=== PATIENT | female | born 1990 | race Caucasian/White ===

== ENCOUNTER 2019-09-22 07:30 | Inpatient (IN) | payer BC ==
[2019-09-22] MEDS ORDERED: Calcium Carbonate 500 MG Tab.Chew PO PRN (08:04)
[2019-09-22] MEDS ORDERED: Sodium Chloride 0.9% 10 ML Syringe FLUSH PRN ×2 (08:04→11:56)
[2019-09-22] MEDS ORDERED: Ondansetron 4 MG/2 ML SDV IVPUSH PRN ×2 (08:04→12:57)
[2019-09-22] MEDS ORDERED: Nalbuphine 10 MG/1 ML Vial IVPUSH PRN ×2 (08:04→11:56)
[2019-09-22] MEDS ORDERED: Oxytocin/Lactated Ringers 10 UNIT/1,000 ML BAG IV SCH ×2 (08:15)
[2019-09-22] MEDS ORDERED: Lactated Ringers 1,000 ML IV SCH (08:15)
--- NOTE | 2019-09-22 11:50 | PCM.LDHP ---
L&D History of Present Illness - General Date of Service: 09/22/19 Admit Problem/Dx: Patient Status Order with Admit Dx/Problem 09/22/19 07:43 Patient Status [ADT] Routine 09/22/19 08:04 Patient Status [ADT] Routine Admission Diagnosis/Problem Admission Diagnosis/Problem Spontaneous rupture of membranes - History of Present Illness Introduction:: 29 year old at 36w4d here with SROM. PNC with myself complicated by IVF. No other issues or complications.\ Breech today on ultrasound. 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, , Other (See Below) Other OB/BYN History: IVF - Past Surgical History Female Surgical History: Reports: Other (See Below) Other Female Surgeries/Procedures: left ovarian cyst removal Social & Family History - Family History Family Medical History: Noncontributory - Tobacco Use Smoking Status *Q: Never Smoker - Recreational Drug Use Recreational Drug Use: No H&P Review of Systems - Review of Systems: Review Of Systems: See Below General: Reports: No Symptoms HEENT: Reports: No Symptoms Pulmonary: Reports: No Symptoms Cardiovascular: Reports: No Symptoms Gastrointestinal: Reports: No Symptoms Genitourinary: Reports: No Symptoms Musculoskeletal: Reports: No Symptoms Skin: Reports: No Symptoms Psychiatric: Reports: No Symptoms Neurological: Reports: No Symptoms Hematologic/Lymphatic: Reports: No Symptoms Immunologic: Reports: No Symptoms L&D Exam - Exam Exam: See Below - Vital Signs Vital Signs: Last Vital Signs Temp 36.4 C 09/22/19 07:43 Pulse 98 09/22/19 10:52 Resp 16 09/22/19 07:43 BP 116/77 09/22/19 10:52 Pulse Ox 100 09/22/19 07:43 Weight: 75.478 kg - OB Specific Contraction Intensity: Mild to Moderate Movement: Active Heart Tones: Present Heart Rate (FHR) Variability: Moderate (6-25 bmp) Presentation: Vertex - Meza Score Meza Score Cervix Position: Midposition Meza Score Consistency: Soft Meza Score Effacement: >80% Meza Score Dilation: 1-2 cm Meza Score Infant's Station: -2 Meza Score Total: 8 - Exam General: Alert, Oriented HEENT: PERRLA, Conjunctiva Clear, EACs Clear, EOMI, Hearing Intact, Mucosa Moist & Armour, Nares Patent, Normal Nasal Septum, Posterior Pharynx Clear, TMs Clear Neck: Supple, Trachea Midline Lungs: Clear to Auscultation, Normal Respiratory Effort Cardiovascular: Regular Rate, Regular Rhythm GI/Abdominal Exam: Normal Bowel Sounds, Soft, Non-Tender, No Organomegaly, No Distention, No Abnormal Bruit, No Mass, Pelvis Stable Rectal Exam: Normal Exam, Normal Rectal Tone Back Exam: Normal Inspection, Full Range of Motion Extremities: Normal Inspection, Normal Range of Motion, Non-Tender, No Pedal Edema, Normal Capillary Refill Skin: Warm, Dry, Intact Neurological: Cranial Nerves Intact, Reflexes Equal Bilateral Psychiatric: Alert, Normal Affect, Normal Mood - Patient Data Lab Results Last 24 hrs: Laboratory Results - last 24 hr 09/22/19 Range/Units 08:20 WBC 10.29 H (3.98-10.04) K/mm3 RBC 3.59 L (3.98-5.22) M/mm3 Hgb 11.7 (11.2-15.7) gm/dl Hct 34.3 (34.1-44.9) % MCV 95.5 H (79.4-94.8) fl MCH 32.6 H (25.6-32.2) pg MCHC 34.1 (32.2-35.5) g/dl RDW Std Deviation 42.8 (36.4-46.3) fL Plt Count 136 L (182-369) K/mm3 MPV 10.8 (9.4-12.3) fl Neut % (Auto) 75.1 H (34.0-71.1) % Lymph % (Auto) 15.3 L (19.3-51.7) % [place] % (Auto) 8.4 (4.7-12.5) % Eos % (Auto) 0.5 L (0.7-5.8) Baso % (Auto) 0.3 (0.1-1.2) % Neut # (Auto) 7.74 H (1.56-6.13) K/mm3 Lymph # (Auto) 1.57 (1.18-3.74) K/mm3 [place] # (Auto) 0.86 H (0.24-0.36) K/mm3 Eos # (Auto) 0.05 (0.04-0.36) K/mm3 Baso # (Auto) 0.03 (0.01-0.08) K/mm3 Result Diagrams: 09/22/19 08:20 Problem List Initiated/Reviewed/Updated: Yes Orders Last 24hrs: Active Orders 24 hr Category Date Time Status Patient Status [ADT] Routine ADT 09/22/19 08:04 Active Activity as Tolerated [RC] PFP Care 09/22/19 08:04 Active Communication Order [RC] ASDIRECTED Care 09/22/19 08:04 Active Notify Provider [RC] PFP Care 09/22/19 08:04 Active Notify Provider [RC] PRN Care 09/22/19 08:04 Active Peripheral IV Care [RC] Q2HR Care 09/22/19 08:04 Active Pump Management, Intrathecal [RC] ASDIRECTED Care 09/22/19 08:06 Active Urinary Catheter Assessment [RC] ASDIRECTED Care 09/22/19 08:04 Active Regular Diet [DIET] Diet 09/22/19 Breakfast Active BLOOD BANK HOLD SPECIMEN [BBK] Stat Lab 09/22/19 08:20 Received RAPID PLASMA REAGIN,RPR [CHEM] Stat Lab 09/22/19 08:20 Received Calcium Carbonate [Tums] Med 09/22/19 08:04 Active 1,000 mg PO Q2H PRN Lactated Ringers [Ringers, Lactated] 1,000 ml Med 09/22/19 08:15 Active IV ASDIRECTED Lidocaine 1% [Xylocaine 1%] Med 09/22/19 12:00 Once 20 ml INJECT ONETIME ONE Nalbuphine [Nubain] Med 09/22/19 08:04 Active 10 mg IVPUSH Q2H PRN Ondansetron [Zofran] Med 09/22/19 08:04 Active 4 mg IVPUSH Q4H PRN Oxytocin/Lactated Ringers [Pitocin in LR 10 Units/1,000 Med 09/22/19 08:15 Active ML] 10 unit in 1,000 ml IV .CONTINUOUS Oxytocin/Lactated Ringers [Pitocin in LR 10 Units/1,000 Med 09/22/19 08:15 Active ML] 10 unit in 1,000 ml IV TITRATE Sodium Chloride 0.9% [Saline Flush] Med 09/22/19 08:04 Active 10 ml FLUSH ASDIRECTED PRN Electronic Heart Tones Ext w TOCO [WOMSER] Oth 09/22/19 08:04 Ordered Routine Electronic Heart Tones Internal [WOMSER] Per Unit Ot 09/22/19 08:04 Ordered Routine Peripheral IV Insertion Adult [OM.PC] Routine Ot 09/22/19 08:04 Ordered Resuscitation Status Routine Resus Stat 09/22/19 07:43 Ordered Medication Orders Calcium Carbonate/Glycine (Tums) 1,000 mg PO Q2H PRN PRN Reason: Indigestion Lactated Ringer's (Ringers, Lactated) 1,000 mls @ 100 mls/hr IV ASDIRECTED PA Last Admin: 09/22/19 10:14 Dose: 100 mls/hr Oxytocin/Lactated Ringer's (Pitocin In Lr 10 Units/1,000 Ml) 10 unit in 1,000 mls @ 500 mls/hr IV .CONTINUOUS PA Oxytocin/Lactated Ringer's (Pitocin In Lr 10 Units/1,000 Ml) 10 unit in 1,000 mls @ 12 mls/hr IV TITRATE PA; Protocol Last Titration: 09/22/19 11:22 Dose: 6 munits/min, 36 mls/hr Titration: 09/22/19 10:48 Dose: 4 munits/min, 24 mls/hr Admin: 09/22/19 10:15 Dose: 2 munits/min, 12 mls/hr Lidocaine HCl (Xylocaine 1%) 20 ml INJECT ONETIME ONE Stop: 09/22/19 12:01 Nalbuphine HCl (Nubain) 10 mg IVPUSH Q2H PRN PRN Reason: Pain Ondansetron HCl (Zofran) 4 mg IVPUSH Q4H PRN PRN Reason: Nausea/Vomiting Sodium Chloride (Saline Flush) 10 ml FLUSH ASDIRECTED PRN PRN Reason: Keep Vein Open Assessment/Plan Comment:: 29 year old female here with breech. Proceed with section.
[2019-09-22] MEDS ORDERED: Azithromycin 500 MG in Sodium Chloride 0.9% 250 ML IV ONE (11:56)
[2019-09-22] MEDS ORDERED: Citric Acid/Sodium Citrate Solution 30 ML Cup PO ONE (11:56)
[2019-09-22] MEDS ORDERED: Metoclopramide 10 MG/2 ML SDV IVPUSH ONE (11:56)
[2019-09-22] MEDS ORDERED: Lidocaine 1% 50 ML MDV INJECT ONE (12:00)
[2019-09-22] MEDS ORDERED: Bupivacaine 0.5% 30 ML SDV ONE (12:06)
[2019-09-22] MEDS ORDERED: Ondansetron 4 MG/2 ML SDV ONE (12:19)
[2019-09-22] MEDS ORDERED: ceFAZolin 1 GM Vial ONE (12:19)
[2019-09-22] MEDS ORDERED: Ketorolac 30 MG/ML SDV ONE (12:19)
[2019-09-22] MEDS ORDERED: Morphine PF 10 MG/10 ML SDV ONE (12:19)
[2019-09-22] MEDS ORDERED: Lactated Ringers 2,000 ML ONE (12:19)
[2019-09-22] MEDS ORDERED: Oxytocin 10 Units/1 ML SDV ONE (12:19)
--- NOTE | 2019-09-22 12:30 | PCM.PREANE ---
Preanesthetic Assessment - Procedure Proposed Procedure: c section - Anesthesia/Transfusion/Family Hx Anesthesia History: Prior Anesthesia Without Reaction Family History of Anesthesia Reaction: No Transfusion History: No Prior Transfusion(s) - Review of Systems General: No Symptoms Pulmonary: No Symptoms Cardiovascular: No Symptoms Gastrointestinal: No Symptoms Neurological: No Symptoms Other: Reports: None - Physical Assessment NPO Status Date: 09/22/19 NPO Status Time: 11:00 (almonds) Vital Signs: Last Vital Signs Temp 97.6 F 09/22/19 07:43 Pulse 102 H 09/22/19 11:24 Resp 16 09/22/19 07:43 BP 118/81 09/22/19 11:24 Pulse Ox 100 09/22/19 07:43 Height: 5 ft 6 in Weight: 75.478 kg ASA Class: 2 Mental Status: Alert & Oriented x3 Airway Class: Mallampati = 1 Dentition: Reports: Normal Dentition Thyro-Mental Finger Breadths: 3 Mouth Opening Finger Breadths: 3 ROM/Head Extension: Full Lungs: Clear to Auscultation, Normal Respiratory Effort Cardiovascular: Regular Rate, Regular Rhythm - Lab Values: Laboratory Last Values WBC 10.29 K/mm3 (3.98-10.04) H 09/22/19 08:20 RBC 3.59 M/mm3 (3.98-5.22) L 09/22/19 08:20 Hgb 11.7 gm/dl (11.2-15.7) 09/22/19 08:20 Hct 34.3 % (34.1-44.9) 09/22/19 08:20 MCV 95.5 fl (79.4-94.8) H 09/22/19 08:20 MCH 32.6 pg (25.6-32.2) H 09/22/19 08:20 MCHC 34.1 g/dl (32.2-35.5) 09/22/19 08:20 RDW Std Deviation 42.8 fL (36.4-46.3) 09/22/19 08:20 Plt Count 136 K/mm3 (182-369) L 09/22/19 08:20 MPV 10.8 fl (9.4-12.3) 09/22/19 08:20 Neut % (Auto) 75.1 % (34.0-71.1) H 09/22/19 08:20 Lymph % (Auto) 15.3 % (19.3-51.7) L 09/22/19 08:20 [place] % (Auto) 8.4 % (4.7-12.5) 09/22/19 08:20 Eos % (Auto) 0.5 (0.7-5.8) L 09/22/19 08:20 Baso % (Auto) 0.3 % (0.1-1.2) 09/22/19 08:20 Neut # (Auto) 7.74 K/mm3 (1.56-6.13) H 09/22/19 08:20 Lymph # (Auto) 1.57 K/mm3 (1.18-3.74) 09/22/19 08:20 [place] # (Auto) 0.86 K/mm3 (0.24-0.36) H 09/22/19 08:20 Eos # (Auto) 0.05 K/mm3 (0.04-0.36) 09/22/19 08:20 Baso # (Auto) 0.03 K/mm3 (0.01-0.08) 09/22/19 08:20 - Allergies Allergies/Adverse Reactions: Allergies Allergy/AdvReac Type Severity Reaction Status Date / Time No Known Allergies Allergy Verified 09/22/19 09:07 - Blood Blood Available: No - Acknowledgements Anesthesia Type Planned: Spinal Pt an Appropriate Candidate for the Planned Anesthesia: Yes Alternatives and Risks of Anesthesia Discussed w Pt/Guardian: Yes Pt/Guardian Understands and Agrees with Anesthesia Plan: Yes PreAnesthesia Questionnaire HEENT History: Reports: Other (See Below) Other HEENT History: wears glasses Cardiovascular History: Reports: None Respiratory History: Reports: None Gastrointestinal History: Reports: None [employer]S History: Reports: Endometriosis, , Other (See Below) : 1 (36 weeks) Para: 0 Other OB/BYN History: IVF - Past Surgical History Female Surgical History: Reports: Other (See Below) Other Female Surgeries/Procedures: left ovarian cyst removal - SUBSTANCE USE Smoking Status *Q: Never Smoker Tobacco Use Within Last Twelve Months: No Second Hand Smoke Exposure: No Days Per Week of Alcohol Use: 0 Recreational Drug Use History: No - HOME MEDS Home Medications: Home Meds Fish Oil/[place]-3 Fatty Acids [Fish Oil 1,000 MG] 1 each PO DAILY 09/22/19 [ History] Pnv No.122/Iron/Folic Acid [ Multi Tablet] 1 each PO DAILY 09/22/19 [ History] Psyllium [Metamucil] 0.5 gm PO DAILY 09/22/19 [History] - CURRENT (IN HOUSE) MEDS Current Meds: Current Medications Azithromycin 500 mg/ Sodium (Chloride) 250 mls @ 250 mls/hr IV ONETIME ONE Stop: 09/22/19 12:55 Lactated Ringer's (Ringers, Lactated) 1,000 mls @ 125 mls/hr IV ASDIRECTED PA Nalbuphine HCl (Nubain) 10 mg IVPUSH Q2H PRN PRN Reason: Pain Sodium Chloride (Saline Flush) 10 ml FLUSH ASDIRECTED PRN PRN Reason: Keep Vein Open Discontinued Medications Bupivacaine HCl (Marcaine 0.5%) Confirm Administered Dose 30 ml .ROUTE .STK-MED ONE Stop: 09/22/19 12:07 Calcium Carbonate/Glycine (Tums) 1,000 mg PO Q2H PRN PRN Reason: Indigestion Cefazolin Sodium (Ancef) Confirm Administered Dose 2 gm .ROUTE .STK-MED ONE Stop: 09/22/19 12:20 Citric Acid/Sodium Citrate (Bicitra Solution) 30 ml PO ONETIME ONE Stop: 09/22/19 11:57 Last Admin: 09/22/19 12:16 Dose: 30 ml Lactated Ringer's (Ringers, Lactated) 1,000 mls @ 100 mls/hr IV ASDIRECTED PA Last Admin: 09/22/19 10:14 Dose: 100 mls/hr Oxytocin/Lactated Ringer's (Pitocin In Lr 10 Units/1,000 Ml) 10 unit in 1,000 mls @ 500 mls/hr IV .CONTINUOUS PA Oxytocin/Lactated Ringer's (Pitocin In Lr 10 Units/1,000 Ml) 10 unit in 1,000 mls @ 12 mls/hr IV TITRATE PA; Protocol Last Titration: 09/22/19 11:22 Dose: 6 munits/min, 36 mls/hr Lactated Ringer's (Ringers, Lactated) Confirm Administered Dose 2,000 mls @ as directed .ROUTE .STK-MED ONE Stop: 09/22/19 12:20 Ketorolac Tromethamine (Toradol) Confirm Administered Dose 30 mg .ROUTE .STK- MED ONE Stop: 09/22/19 12:20 Lidocaine HCl (Xylocaine 1%) 20 ml INJECT ONETIME ONE Stop: 09/22/19 12:01 Metoclopramide HCl (Reglan) 10 mg IVPUSH ONETIME ONE Stop: 09/22/19 11:57 Last Admin: 09/22/19 12:15 Dose: 10 mg Morphine Sulfate (Duramorph Pf) Confirm Administered Dose 10 mg .ROUTE .STK-MED ONE Stop: 09/22/19 12:20 Nalbuphine HCl (Nubain) 10 mg IVPUSH Q2H PRN PRN Reason: Pain Ondansetron HCl (Zofran) 4 mg IVPUSH Q4H PRN PRN Reason: Nausea/Vomiting Ondansetron HCl (Zofran) Confirm Administered Dose 4 mg .ROUTE .STK-MED ONE Stop: 09/22/19 12:20 Oxytocin (Pitocin) Confirm Administered Dose 10 unit .ROUTE .STK-MED ONE Stop: 09/22/19 12:20 Sodium Chloride (Saline Flush) 10 ml FLUSH ASDIRECTED PRN PRN Reason: Keep Vein Open
[2019-09-22] MEDS: Lactated Ringers 1,000 ML IV SCH ×2 (12:38→13:56)
[2019-09-22] MEDS ORDERED: ePHEDrine/Normal Saline 25 MG/5 ML Syringe ONE (12:47)
[2019-09-22] MEDS ORDERED: Phenylephrine/Normal Saline 100 MCG/ML 10 ML Syringe ONE (12:56)
[2019-09-22] MEDS ORDERED: fentaNYL 100 MCG/2 ML SDV IVPUSH PRN (12:57)
[2019-09-22] MEDS ORDERED: diphenhydrAMINE 50 MG/ML SDV IVPUSH PRN ×2 (12:57→14:00)
--- NOTE | 2019-09-22 13:46 | PCM.POSTAN ---
POST ANESTHESIA ASSESSMENT - MENTAL STATUS Mental Status: Alert, Oriented - VITAL SIGNS Vital Signs: Last Vital Signs Temp 97.6 F 09/22/19 07:43 Pulse 92 09/22/19 12:19 Resp 16 09/22/19 07:43 BP 114/72 09/22/19 12:19 Pulse Ox 100 09/22/19 07:43 1336 76 9 97.8 100% 105/74 - RESPIRATORY Respiratory Status: Respiratory Rate WNL, Airway Patent, O2 Saturation Stable, Supplemental Oxygen - CARDIOVASCULAR CV Status: Pulse Rate WNL, Blood Pressure Stable - GASTROINTESTINAL GI Status: No Symptoms - PAIN Pain Score: 0 - POST OP HYDRATION Hydration Status: Adequate & Stable
--- NOTE | 2019-09-22 13:55 | PCM.OPNOTE ---
- General Post-Op/Procedure Note Date of Surgery/Procedure: 09/22/19 Operative Procedure(s): primary - low transverse with low vertical extension (very small) - would likely consider candidate for tolac Findings: footling breech, 3/8 apgars, 7#5oz at 1305. Pre Op Diagnosis: breech Post-Op Diagnosis: Same Anesthesia Technique: Spinal Primary Surgeon: Rachael Willson Anesthesia Provider: Shivani Hassan Tonger: Leona Helm Fluid Replacement, Intraop: 2,100 Output, Urine Amount: 150 EBL in mLs: 700 Complications: None Condition: Good Free Text/Narrative:: Intake & Output 09/21/19 09/22/19 09/22/19 22:59 06:59 14:59 Intake Total 0 Balance 0 The patient was taken to the operating room where spinal anesthesia was initiated without difficulty. The patient was prepped and draped in the usual sterile fashion in the dorsal supine position with a leftward tilt. A Pfannenstiel skin incision was made with the scalpel and carried through to the underlying layer of fascia. The fascia was incised in the midline and extended laterally using Hodge scissors. Hannah clamps were used to elevate the superior aspect of the fascial incision, which was elevated, and the underlying rectus muscles were dissected off bluntly and using Hodge scissors. Attention was then turned to the inferior aspect of the fascial incision, which in similar fashion was grasped with Hannah clamps, elevated, and the underlying rectus muscles were dissected off bluntly and using the hodge. The rectus muscles were dissected in the midline. The peritoneum was entered bluntly; this incision was extended superiorly and inferiorly with good visualization of the bladder. The bladder blade was inserted. The vesicouterine peritoneum was identified and entered sharply using Metzenbaum scissors. This incision was extended laterally and the bladder flap was created digitally. The bladder blade was reinserted. The lower uterine segment was incised in a transverse fashion using the scalpel and with digital traction. Clear fluid was noted. Feet grasped, body delivered with usual breech maneuvers with some difficulty. The cord was clamped and cut. The was subsequently handed to the awaiting head filter tank tender helper whose presence had been requested.. The placenta was delivered spontaneously intact with a three-vessel cord noted. The uterus was exteriorized and cleared of all clots and debris. The uterine incision was repaired in 2 layers using 0 monocryl. Hemostasis was visualized. Hemostasis was visualized bilaterally. The uterus was returned to the abdomen. The uterine incision was reexamined and it was noted to be hemostatic. The pelvis was copiously irrigated. The fascia was closed with 1 PDS suture, and the skin was closed with 3-0 monocryl. Sponge, lap, and instrument counts were correct x2. The patient was stable at the completion of the procedure and was subsequently transferred to the recovery room in stable condition.
[2019-09-22] MEDS ORDERED: Naloxone 0.4 MG/ML SDV IVPUSH PRN (14:00)
[2019-09-22] MEDS ORDERED: Dextrose 5%-Lactated Ringers 1,000 ML IV SCH (14:00)
[2019-09-22] MEDS ORDERED: ePHEDrine 50 MG/ML SDV IVPUSH PRN (14:00)
[2019-09-22] MEDS: Ketorolac 30 MG/ML SDV IVPUSH SCH (19:16)
[2019-09-23] MEDS: Ketorolac 30 MG/ML SDV IVPUSH SCH ×2 (01:04→06:50)
--- NOTE | 2019-09-23 08:05 | PCM48HPAN ---
Post Anesthesia Note - EVALUATION WITHIN 48HRS OF ANESTHETIC Vital Signs in Normal Range: Yes Patient Participated in Evaluation: Yes Respiratory Function Stable: Yes Airway Patent: Yes Cardiovascular Function Stable: Yes Hydration Status Stable: Yes Pain Control Satisfactory: Yes Nausea and Vomiting Control Satisfactory: Yes Mental Status Recovered: Yes Vital Signs: Last Vital Signs Temp 36.8 C 09/23/19 04:18 Pulse 91 09/23/19 04:18 Resp 14 09/23/19 04:18 BP 96/61 09/23/19 04:18 Pulse Ox 99 09/23/19 04:18
[2019-09-23] MEDS: Docusate Sodium 100 MG Cap PO PRN ×2 (08:37→21:01)
[2019-09-23] MEDS: Acetaminophen/oxyCODONE 325-5 MG Tab PO PRN ×3 (08:38→20:56)
[2019-09-23] MEDS: Ibuprofen 600 MG Tab PO PRN (12:55)
[2019-09-24] MEDS: Ibuprofen 600 MG Tab PO PRN ×3 (02:10→20:03)
[2019-09-24] MEDS: Acetaminophen/oxyCODONE 325-5 MG Tab PO PRN (09:45)
[2019-09-25] MEDS: Docusate Sodium 100 MG Cap PO PRN (03:17)
[2019-09-25] MEDS: Acetaminophen/oxyCODONE 325-5 MG Tab PO PRN (03:17)
--- NOTE | 2019-09-25 06:23 | PCM.PNPP ---
- General Info Date of Service: 09/23/19 Functional Status: Reports: Pain Controlled - Review of Systems General: Reports: No Symptoms HEENT: Reports: No Symptoms Pulmonary: Reports: No Symptoms Cardiovascular: Reports: No Symptoms Gastrointestinal: Reports: No Symptoms Genitourinary: Reports: No Symptoms Musculoskeletal: Reports: No Symptoms Skin: Reports: No Symptoms Neurological: Reports: No Symptoms Psychiatric: Reports: No Symptoms - General Info Date of Service: 09/23/19 - Patient Data Vital Signs - Most Recent: Last Vital Signs Temp 36.6 C 09/25/19 03:12 Pulse 74 09/25/19 03:12 Resp 14 09/25/19 03:12 BP 118/72 09/25/19 03:12 Pulse Ox 97 09/25/19 03:12 Weight - Most Recent: 75.478 kg I&O - Last 24 Hours: Intake & Output 09/24/19 09/24/19 09/25/19 14:59 22:59 06:59 Intake Total 240 Balance 240 Med Orders - Current: Current Medications Diphenhydramine HCl (Benadryl) 25 mg IVPUSH Q6H PRN PRN Reason: Itching or Nausea Docusate Sodium (Colace) 100 mg PO Q12H PRN PRN Reason: Constipation Last Admin: 09/25/19 03:17 Dose: 100 mg Ephedrine Sulfate (Ephedrine Sulfate) 5 mg IVPUSH SEECOMMENT PRN PRN Reason: Other Ibuprofen (Motrin) 600 mg PO Q6H PRN PRN Reason: mild pain or fever Last Admin: 09/24/19 20:03 Dose: 600 mg Naloxone HCl (Narcan) 0.1 mg IVPUSH SEECOMMENT PRN PRN Reason: Respiratory Depression Oxycodone/Acetaminophen (Percocet 325-5 Mg) 1 - 2 tab PO Q4H PRN PRN Reason: Pain Last Admin: 09/25/19 03:17 Dose: 1 tab Discontinued Medications Bupivacaine HCl (Marcaine 0.5%) Confirm Administered Dose 30 ml .ROUTE .STK-MED ONE Stop: 09/22/19 12:07 Last Admin: 09/22/19 12:54 Dose: 19 ml Calcium Carbonate/Glycine (Tums) 1,000 mg PO Q2H PRN PRN Reason: Indigestion Cefazolin Sodium (Ancef) Confirm Administered Dose 2 gm .ROUTE .STK-MED ONE Stop: 09/22/19 12:20 Citric Acid/Sodium Citrate (Bicitra Solution) 30 ml PO ONETIME ONE Stop: 09/22/19 11:57 Last Admin: 09/22/19 12:16 Dose: 30 ml Diphenhydramine HCl (Benadryl) 25 mg IVPUSH Q6H PRN PRN Reason: Pruritis Ephedrine Sulfate (Ephedrine In Ns) Confirm Administered Dose 25 mg .ROUTE .STK- MED ONE Stop: 09/22/19 12:48 Fentanyl (Sublimaze) 50 mcg IVPUSH Q5M PRN PRN Reason: Pain Lactated Ringer's (Ringers, Lactated) 1,000 mls @ 100 mls/hr IV ASDIRECTED PA Last Admin: 09/22/19 10:14 Dose: 100 mls/hr Oxytocin/Lactated Ringer's (Pitocin In Lr 10 Units/1,000 Ml) 10 unit in 1,000 mls @ 500 mls/hr IV .CONTINUOUS PA Oxytocin/Lactated Ringer's (Pitocin In Lr 10 Units/1,000 Ml) 10 unit in 1,000 mls @ 12 mls/hr IV TITRATE PA; Protocol Last Titration: 09/22/19 11:22 Dose: 6 munits/min, 36 mls/hr Azithromycin 500 mg/ Sodium (Chloride) 250 mls @ 250 mls/hr IV ONETIME ONE Stop: 09/22/19 12:55 Last Admin: 09/22/19 12:20 Dose: 250 mls/hr Lactated Ringer's (Ringers, Lactated) 1,000 mls @ 125 mls/hr IV ASDIRECTED PA Last Admin: 09/22/19 13:56 Dose: 125 mls/hr Lactated Ringer's (Ringers, Lactated) Confirm Administered Dose 2,000 mls @ as directed .ROUTE .STK-MED ONE Stop: 09/22/19 12:20 Dextrose/Lactated Ringer's (Dextrose 5%-Lactated Ringers) 1,000 mls @ 125 mls/ hr IV ASDIRECTED PA Stop: 09/22/19 21:59 Last Admin: 09/22/19 18:03 Dose: 125 mls/hr Ketorolac Tromethamine (Toradol) Confirm Administered Dose 30 mg .ROUTE .STK- MED ONE Stop: 09/22/19 12:20 Ketorolac Tromethamine (Toradol) 30 mg IVPUSH Q6H PA Stop: 09/23/19 06:31 Last Admin: 09/23/19 06:50 Dose: 30 mg Lidocaine HCl (Xylocaine 1%) 20 ml INJECT ONETIME ONE Stop: 09/22/19 12:01 Metoclopramide HCl (Reglan) 10 mg IVPUSH ONETIME ONE Stop: 09/22/19 11:57 Last Admin: 09/22/19 12:15 Dose: 10 mg Morphine Sulfate (Duramorph Pf) Confirm Administered Dose 10 mg .ROUTE .STK-MED ONE Stop: 09/22/19 12:20 Nalbuphine HCl (Nubain) 10 mg IVPUSH Q2H PRN PRN Reason: Pain Nalbuphine HCl (Nubain) 10 mg IVPUSH Q2H PRN PRN Reason: Pain Ondansetron HCl (Zofran) 4 mg IVPUSH Q4H PRN PRN Reason: Nausea/Vomiting Ondansetron HCl (Zofran) Confirm Administered Dose 4 mg .ROUTE .STK-MED ONE Stop: 09/22/19 12:20 Ondansetron HCl (Zofran) 4 mg IVPUSH ONETIME PRN PRN Reason: Nausea/Vomiting Oxycodone/Acetaminophen (Percocet 325-5 Mg) 2 tab PO Q4H PRN PRN Reason: Pain (moderate 4-6) Last Admin: 09/23/19 15:10 Dose: 1 tab Oxytocin (Pitocin) Confirm Administered Dose 10 unit .ROUTE .STK-MED ONE Stop: 09/22/19 12:20 Phenylephrine HCl (Phenylephrine In Ns 100 Mcg/Ml) Confirm Administered Dose 1 mg .ROUTE .STK-MED ONE Stop: 09/22/19 12:57 Sodium Chloride (Saline Flush) 10 ml FLUSH ASDIRECTED PRN PRN Reason: Keep Vein Open Sodium Chloride (Saline Flush) 10 ml FLUSH ASDIRECTED PRN PRN Reason: Keep Vein Open - Interaction Infant Disposition, : [place] at Bedside Support Person: - Recovery Exam Fundal Tone: Firm Fundal Level: 1 Fingerbreadths Below Umbilicus Fundal Placement: Midline Lochia Amount: Small Lochia Color: [place]/Red Perineum Description: Intact, Minimal Bruising/Swelling Episiotomy/Laceration: None Bladder Status: Voiding Urinary Elimination: Voided - Exam General: Alert, Oriented HEENT: Pupils Equal Neck: Supple Lungs: Clear to Auscultation, Normal Respiratory Effort Cardiovascular: Regular Rate, Regular Rhythm GI/Abdominal Exam: Normal Bowel Sounds, Soft, Non-Tender, No Organomegaly, No Distention, No Abnormal Bruit, No Mass, Pelvis Stable Extremities: Normal Inspection, Normal Range of Motion, Non-Tender, No Pedal Edema, Normal Capillary Refill Skin: Warm, Dry, Intact Wound/Incisions: Healing Well, No Drainage Neurological: No New Focal Deficit Psy/Mental Status: Alert, Normal Affect, Normal Mood - Problem List Review Problem List Initiated/Reviewed/Updated: Yes - Assessment Assessment:: POD2. Doing well. No complaints. Probable discharge tomorrow.
--- NOTE | 2019-09-25 06:26 | PCM.DCSUM1 ---
Discharge Summary - Hospital Course Diagnosis: Stroke: No - Discharge Data Discharge Date: 09/25/19 Discharge Disposition: Home, Self-Care 01 Condition: Good - Referral to Home Health Primary Care Physician: Rachael Willson MD - Patient Summary/Data Operative Procedure(s) Performed: primary - low transverse with low vertical extension (very small) - would likely consider candidate for tolac - Patient Instructions Diet: Usual Diet as Tolerated Activity: No Strenuous Activities Activity, Other: pelvic rest Driving: Do Not Drive Showering/Bathing: May Shower Wound/Incision Care: Keep Operative Site/Wound Site Clean and Dry Notify Provider of: Fever, Increased Pain, Swelling and Redness, Drainage, Nausea and/or Vomiting - Discharge Plan *PRESCRIPTION DRUG MONITORING PROGRAM REVIEWED*: No *COPY OF PRESCRIPTION DRUG MONITORING REPORT IN PATIENT FANY: No Home Medications: Home Meds Fish Oil/[place]-3 Fatty Acids [Fish Oil 1,000 MG] 1 each PO DAILY 09/22/19 [ History] Pnv No.122/Iron/Folic Acid [ Multi Tablet] 1 each PO DAILY 09/22/19 [ History] Psyllium [Metamucil] 0.5 gm PO DAILY 09/22/19 [History] Referrals: Rachael Willson MD [Primary Care Provider] - (2-3 weeks) - Discharge Summary/Plan Comment DC Time >30 min.: No - General Info Date of Service: 09/25/19 Functional Status: Reports: Pain Controlled - Review of Systems General: Reports: No Symptoms HEENT: Reports: No Symptoms Pulmonary: Reports: No Symptoms Cardiovascular: Reports: No Symptoms Gastrointestinal: Reports: No Symptoms Genitourinary: Reports: No Symptoms Musculoskeletal: Reports: No Symptoms Skin: Reports: No Symptoms Neurological: Reports: No Symptoms Psychiatric: Reports: No Symptoms - Patient Data Vitals - Most Recent: Last Vital Signs Temp 36.6 C 09/25/19 03:12 Pulse 74 09/25/19 03:12 Resp 14 09/25/19 03:12 BP 118/72 09/25/19 03:12 Pulse Ox 97 09/25/19 03:12 Weight - Most Recent: 75.478 kg I&O - Last 24 hours: Intake & Output 09/24/19 09/24/19 09/25/19 14:59 22:59 06:59 Intake Total 240 Balance 240 Med Orders - Current: Current Medications Diphenhydramine HCl (Benadryl) 25 mg IVPUSH Q6H PRN PRN Reason: Itching or Nausea Docusate Sodium (Colace) 100 mg PO Q12H PRN PRN Reason: Constipation Last Admin: 09/25/19 03:17 Dose: 100 mg Ephedrine Sulfate (Ephedrine Sulfate) 5 mg IVPUSH SEECOMMENT PRN PRN Reason: Other Ibuprofen (Motrin) 600 mg PO Q6H PRN PRN Reason: mild pain or fever Last Admin: 09/24/19 20:03 Dose: 600 mg Naloxone HCl (Narcan) 0.1 mg IVPUSH SEECOMMENT PRN PRN Reason: Respiratory Depression Oxycodone/Acetaminophen (Percocet 325-5 Mg) 1 - 2 tab PO Q4H PRN PRN Reason: Pain Last Admin: 09/25/19 03:17 Dose: 1 tab Discontinued Medications Bupivacaine HCl (Marcaine 0.5%) Confirm Administered Dose 30 ml .ROUTE .STK-MED ONE Stop: 09/22/19 12:07 Last Admin: 09/22/19 12:54 Dose: 19 ml Calcium Carbonate/Glycine (Tums) 1,000 mg PO Q2H PRN PRN Reason: Indigestion Cefazolin Sodium (Ancef) Confirm Administered Dose 2 gm .ROUTE .STK-MED ONE Stop: 09/22/19 12:20 Citric Acid/Sodium Citrate (Bicitra Solution) 30 ml PO ONETIME ONE Stop: 09/22/19 11:57 Last Admin: 09/22/19 12:16 Dose: 30 ml Diphenhydramine HCl (Benadryl) 25 mg IVPUSH Q6H PRN PRN Reason: Pruritis Ephedrine Sulfate (Ephedrine In Ns) Confirm Administered Dose 25 mg .ROUTE .STK- MED ONE Stop: 09/22/19 12:48 Fentanyl (Sublimaze) 50 mcg IVPUSH Q5M PRN PRN Reason: Pain Lactated Ringer's (Ringers, Lactated) 1,000 mls @ 100 mls/hr IV ASDIRECTED PA Last Admin: 09/22/19 10:14 Dose: 100 mls/hr Oxytocin/Lactated Ringer's (Pitocin In Lr 10 Units/1,000 Ml) 10 unit in 1,000 mls @ 500 mls/hr IV .CONTINUOUS PA Oxytocin/Lactated Ringer's (Pitocin In Lr 10 Units/1,000 Ml) 10 unit in 1,000 mls @ 12 mls/hr IV TITRATE PA; Protocol Last Titration: 09/22/19 11:22 Dose: 6 munits/min, 36 mls/hr Azithromycin 500 mg/ Sodium (Chloride) 250 mls @ 250 mls/hr IV ONETIME ONE Stop: 09/22/19 12:55 Last Admin: 09/22/19 12:20 Dose: 250 mls/hr Lactated Ringer's (Ringers, Lactated) 1,000 mls @ 125 mls/hr IV ASDIRECTED [facility] Last Admin: 09/22/19 13:56 Dose: 125 mls/hr Lactated Ringer's (Ringers, Lactated) Confirm Administered Dose 2,000 mls @ as directed .ROUTE .STK-MED ONE Stop: 09/22/19 12:20 Dextrose/Lactated Ringer's (Dextrose 5%-Lactated Ringers) 1,000 mls @ 125 mls/ hr IV ASDIRECTED [facility] Stop: 09/22/19 21:59 Last Admin: 09/22/19 18:03 Dose: 125 mls/hr Ketorolac Tromethamine (Toradol) Confirm Administered Dose 30 mg .ROUTE .STK- MED ONE Stop: 09/22/19 12:20 Ketorolac Tromethamine (Toradol) 30 mg IVPUSH Q6H [facility] Stop: 09/23/19 06:31 Last Admin: 09/23/19 06:50 Dose: 30 mg Lidocaine HCl (Xylocaine 1%) 20 ml INJECT ONETIME ONE Stop: 09/22/19 12:01 Metoclopramide HCl (Reglan) 10 mg IVPUSH ONETIME ONE Stop: 09/22/19 11:57 Last Admin: 09/22/19 12:15 Dose: 10 mg Morphine Sulfate (Duramorph Pf) Confirm Administered Dose 10 mg .ROUTE .STK-MED ONE Stop: 09/22/19 12:20 Nalbuphine HCl (Nubain) 10 mg IVPUSH Q2H PRN PRN Reason: Pain Nalbuphine HCl (Nubain) 10 mg IVPUSH Q2H PRN PRN Reason: Pain Ondansetron HCl (Zofran) 4 mg IVPUSH Q4H PRN PRN Reason: Nausea/Vomiting Ondansetron HCl (Zofran) Confirm Administered Dose 4 mg .ROUTE .STK-MED ONE Stop: 09/22/19 12:20 Ondansetron HCl (Zofran) 4 mg IVPUSH ONETIME PRN PRN Reason: Nausea/Vomiting Oxycodone/Acetaminophen (Percocet 325-5 Mg) 2 tab PO Q4H PRN PRN Reason: Pain (moderate 4-6) Last Admin: 09/23/19 15:10 Dose: 1 tab Oxytocin (Pitocin) Confirm Administered Dose 10 unit .ROUTE .STK-MED ONE Stop: 09/22/19 12:20 Phenylephrine HCl (Phenylephrine In Ns 100 Mcg/Ml) Confirm Administered Dose 1 mg .ROUTE .STK-MED ONE Stop: 09/22/19 12:57 Sodium Chloride (Saline Flush) 10 ml FLUSH ASDIRECTED PRN PRN Reason: Keep Vein Open Sodium Chloride (Saline Flush) 10 ml FLUSH ASDIRECTED PRN PRN Reason: Keep Vein Open - Exam General: Reports: Alert, Oriented HEENT: Reports: Pupils Equal, Pupils Reactive, EOMI, Mucous Membr. Moist/[place] Neck: Reports: Supple Lungs: Reports: Clear to Auscultation, Normal Respiratory Effort Cardiovascular: Reports: Regular Rate, Regular Rhythm GI/Abdominal Exam: Normal Bowel Sounds, Soft, Non-Tender, No Organomegaly, No Abnormal Bruit, No Mass, Distended Rectal (Female) Exam: Normal Exam, Normal Rectal Tone Back Exam: Reports: Normal Inspection, Full Range of Motion Extremities: Normal Inspection, Normal Range of Motion, Non-Tender, No Pedal Edema, Normal Capillary Refill Skin: Reports: Warm, Dry, Intact Wound/Incisions: Reports: Healing Well Neurological: Reports: No New Focal Deficit Psy/Mental Status: Reports: Alert, Normal Affect, Normal Mood
[2019-09-25] MEDS: Ibuprofen 600 MG Tab PO PRN (06:39)
== END 2019-09-25 13:20 | disposition home or self-care (01) | DRG 540 ==
LOC: JD.OB 07:30 → OBSVTOIN 11:50 → JD.OB 19:41
PROVIDERS: ADMIT Obstetrics & Gynecology; ATTEND Obstetrics & Gynecology
PROC: 10D00Z1 Extraction of Products of Conception, Low, Open Approach (ICD-10-PCS; principal; 2019-09-22)
DX: O32.1XX0 Maternal care for breech presentation, not applicable or unspecified (principal); Z3A.36 36 weeks gestation of pregnancy; Z37.0 Single live birth
CPT/HCPCS: 01961; 36415; 59025; 85025; 86592; 86850; 86900; 86901; 94762; A9270-GY; J0456; J0690; J1885; J2270; J2370; J2405; J2590; J2765; J3490; J7042; J7050; J7120